=== PATIENT | male | born 1990 | race African-American/Black ===

== ENCOUNTER 2018-09-01 01:55 | Emergency (ER) | payer SELFPAY ==
[~2018-09-01] VITALS: Ht 170.2 cm; Wt 72.7 kg
[~2018-09-01 01:55] MED LIST: AMOXICILLIN 50500 MG PO; NORCO 325 MG-51 TAB PO; PEN-VEE K500 MG PO; PREDNISONE10 MG PO; PREDNISONE20 MG PO; PROAIR HFA0.09 MG/AC IH; PROVENTIL0.09 MG/A1 IH; VENTOLIN0.09 MG IH
[2018-09-01 01:58] VITALS: BP 123/88; TEMP 97.2
[2018-09-01] MEDS ORDERED: PREDNISONE20 MG PO (03:08)
[2018-09-01] MEDS ORDERED: ZITHROMAX500 M2 PO (03:08)
[2018-09-01 03:12] VITALS: PULSE 76
== END 2018-09-01 03:12 | disposition home or self-care (01) ==
LOC: COL.ER 01:55
DX: J45.909 Unspecified asthma, uncomplicated (principal); Z87.891 Personal history of nicotine dependence
CPT/HCPCS: J7512

== ENCOUNTER 2019-01-02 17:09 | Emergency (ER) | payer SELFPAY ==
[~2019-01-02] VITALS: Ht 170.2 cm; Wt 68.2 kg
[~2019-01-02 17:09] MED LIST changes: +ALBUTEROL0.83 MG/ML IH; +FLOVENT 110MCG7.9 GM IH; +FLOVENT 44MCG I13 GM IH; +ZITHROMAX500 M2 PO
[2019-01-02 17:20] VITALS: TEMP 98.8
[2019-01-02] MEDS ORDERED: PREDNISONE20 MG PO (21:13)
[2019-01-02] MEDS ORDERED: ZITHROMAX 250M250 MG PO (21:13)
[2019-01-02 21:30] VITALS: BP 132/71; PULSE 92
== END 2019-01-02 21:30 | disposition home or self-care (01) ==
LOC: COL.ER 17:09
DX: J45.901 Unspecified asthma with (acute) exacerbation (principal); Z87.891 Personal history of nicotine dependence; Z79.51 Long term (current) use of inhaled steroids
CPT/HCPCS: J7512

== ENCOUNTER 2019-03-16 21:03 | Emergency (ER) | payer SELFPAY ==
[~2019-03-16] VITALS: Ht 170.2 cm; Wt 68.2 kg
[~2019-03-16 21:03] MED LIST changes: +ZITHROMAX 250M250 MG PO
[2019-03-16 21:10] VITALS: BP 138/78; TEMP 98.6
[2019-03-16] MEDS ORDERED: PREDNISONE20 MG PO (21:58)
[2019-03-16 22:07] VITALS: PULSE 88
== END 2019-03-16 22:05 | disposition home or self-care (01) ==
LOC: COL.ER 21:03
DX: J44.1 Chronic obstructive pulmonary disease with (acute) exacerbation (principal); F17.290 Nicotine dependence, other tobacco product, uncomplicated; Z79.51 Long term (current) use of inhaled steroids
CPT/HCPCS: J7512

== ENCOUNTER 2019-06-11 22:20 | Emergency (ER) | payer SELFPAY ==
[~2019-06-11] VITALS: Ht 170.2 cm; Wt 65.9 kg
[2019-06-11 22:32] VITALS: BP 116/66; PULSE 69; TEMP 98.9
== END 2019-06-12 01:45 | disposition home or self-care (01) ==
LOC: COL.ER 22:20
DX: J45.901 Unspecified asthma with (acute) exacerbation (principal); Z79.51 Long term (current) use of inhaled steroids; Z79.52 Long term (current) use of systemic steroids

== ENCOUNTER 2019-06-20 10:58 | Emergency (ER) | payer SELFPAY ==
[~2019-06-20] VITALS: Ht 170.2 cm; Wt 68.2 kg
[2019-06-20] MEDS ORDERED: ZOFRAN ODT4 MG PO (14:08)
[2019-06-20 14:25] VITALS: BP 124/70; PULSE 74; TEMP 98
== END 2019-06-20 14:15 | disposition home or self-care (01) ==
LOC: COL.ER 10:58
DX: R11.10 Vomiting, unspecified (principal); J45.909 Unspecified asthma, uncomplicated; Z87.891 Personal history of nicotine dependence
CPT/HCPCS: C9113; J2405; J7030

== ENCOUNTER 2019-08-22 10:11 | Emergency (ER) | payer SELFPAY ==
[~2019-08-22] VITALS: Ht 170.2 cm; Wt 68.2 kg
[~2019-08-22 10:11] MED LIST changes: +ZOFRAN ODT4 MG PO
[2019-08-22 10:16] VITALS: BP 120/72; TEMP 98.3
[2019-08-22] MEDS ORDERED: PREDNISONE20 MG PO (11:31)
[2019-08-22] MEDS ORDERED: CLARITIN 1010 MG/TAB PO (11:32)
[2019-08-22] MEDS ORDERED: PULMICORT90 MCG/Act IH (12:15)
[2019-08-22 12:50] VITALS: PULSE 64
== END 2019-08-22 12:50 | disposition home or self-care (01) ==
LOC: COL.ER 10:11
DX: J45.901 Unspecified asthma with (acute) exacerbation (principal); Z87.891 Personal history of nicotine dependence; Z79.899 Other long term (current) drug therapy
CPT/HCPCS: J7512

== ENCOUNTER 2019-10-28 07:42 | Emergency (ER) | payer SELFPAY ==
[~2019-10-28] VITALS: Ht 170.2 cm; Wt 68.2 kg
[~2019-10-28 07:42] MED LIST changes: +CLARITIN 1010 MG/TAB PO; +PULMICORT90 MCG/Act IH
[2019-10-28 07:59] VITALS: BP 135/72; TEMP 98.1
[2019-10-28] MEDS ORDERED: PROAIR HFA0.09 MG/AC IH (08:18)
[2019-10-28] MEDS ORDERED: PREDNISONE20 MG PO (08:18)
[2019-10-28 08:40] VITALS: PULSE 80
== END 2019-10-28 08:31 | disposition home or self-care (01) ==
LOC: COL.ER 07:42
DX: J45.901 Unspecified asthma with (acute) exacerbation (principal); Z79.52 Long term (current) use of systemic steroids

== ENCOUNTER 2019-12-25 07:10 | Emergency (ER) | payer SELFPAY ==
[~2019-12-25] VITALS: Ht 170.2 cm; Wt 65.9 kg
[2019-12-25 07:15] VITALS: BP 121/73; TEMP 98.5
[2019-12-25] MEDS ORDERED: FLOVENT 110MCG7.9 GM IH (07:34)
[2019-12-25] MEDS ORDERED: PREDNISONE10 MG PO (07:36)
[2019-12-25 07:50] VITALS: PULSE 57
== END 2019-12-25 07:50 | disposition home or self-care (01) ==
LOC: COL.ER 07:10
DX: J45.901 Unspecified asthma with (acute) exacerbation (principal); Z79.52 Long term (current) use of systemic steroids; Z91.14 Patient's other noncompliance with medication regimen
CPT/HCPCS: J7512

== ENCOUNTER 2020-02-10 18:15 | Emergency (ER) | payer SELFPAY ==
[~2020-02-10] VITALS: Ht 170.2 cm; Wt 68.2 kg
[2020-02-10] MEDS ORDERED: PREDNISONE20 MG PO (18:45)
[2020-02-10 19:10] VITALS: BP 118/64; PULSE 69; TEMP 98.7
== END 2020-02-10 19:15 | disposition home or self-care (01) ==
LOC: COL.ER 18:15
DX: J45.901 Unspecified asthma with (acute) exacerbation (principal); Z87.891 Personal history of nicotine dependence
CPT/HCPCS: J7512

== ENCOUNTER 2020-03-08 13:13 | Emergency (ER) | payer SELFPAY ==
[~2020-03-08] VITALS: Ht 167.6 cm; Wt 65.9 kg
[2020-03-08 13:18] VITALS: BP 123/79; TEMP 98
[2020-03-08] MEDS ORDERED: PREDNISONE20 MG PO (13:41)
[2020-03-08] MEDS ORDERED: PROAIR HFA0.09 MG/AC IH (13:41)
[2020-03-08 13:47] VITALS: PULSE 62
== END 2020-03-08 13:49 | disposition home or self-care (01) ==
LOC: COL.ER 13:13
DX: J45.909 Unspecified asthma, uncomplicated (principal); Z87.891 Personal history of nicotine dependence; Z79.52 Long term (current) use of systemic steroids